=== PATIENT | female | born 2000 | race Caucasian/White ===

== ENCOUNTER → 2025-08-12 | Outpatient (CLI) | payer BC, SELFPAY ==
[2025-08-12 12:19] LABS: Hematocrit 36.8 % (37-47); Hemoglobin 12.9 g/dL (12.0-15.0); Immature Granulocytes Count 0.040 X10^3/uL (0.0-0.0); Mean Corp Hgb Conc 35.1 g/dL (32-36); Mean Corpuscular Volume 85.6 fL (81-99); Mean Platelet Vol. 10.2 fl (6.2-12.0); NRBC Flagged by Analyzer 0 % (0-5); Platelet Count 277 K/mm3 (150-450); RBC Distribution Width CV 12.0 % (11.6-14.6); RBC Distribution Width SD 37.4 fl (35.1-43.9); Red Blood Count 4.30 M/mm3 (4.2-5.4); White Blood Count 7.9 K/mm3 (4.4-11.0)
--- OUTSIDE RECORDS SUMMARY | 2025-08-12 13:15 | XMS RPT_ITS | CCD ---
Author Organization [facility] Care Team Providers Care Livery Car Driver Name Role Phone Care Physician, No Primary Primary Care Unava ilable Shandra Hidalgo Attending Unavailable Care Physician, No Primary Referring Unava ilable Selina Tolbert Attending Unavailable Care Physician, No Primary Referring Unava ilable Care Physician, No Primary Primary Care Unava ilable Allergies Allergy Classification Reported Allergen(s) Allergy Type Date of Onset Reaction(s) Facility (1 source) Amoxicillin Drug Allergy 07-30-2025 [facility] Repository Problems Problem Classification Problem Date Documented Da te Episodic/Chronic Other and delivery including normal (1 source) Encounter for supervision of normal , unspecified, unspecified trimester; Translations: [Encounter for supervision of normal , unspecified, unspecified trimester] Onset: 07-30-2025 Episodic Other screening for suspected conditions (not mental disorders or infectious disease) (1 source) Encounter for screening for malignant neoplasm of cervix; Translations: [Encounter for screening for malignant neoplasm of cervix] Onset: 07-30-2025 Episodic Residual codes; unclassified (1 source) Family history of other specified conditions; Translations: [Family history of other specified conditions] Onset: 07-30-2025 Episodic Results Test Name Value Interpretation Reference Range Facil it Office Visit Reporton 2024 Office Visit Report [facility] [address] [place] [address] OFFICE VISIT Date of Service: 07/30/25 MR#: [id number] Acct: [id number] Patient: SHERITA ALCALA Rep #: [id number] : 2000 Provider: Dr. Selina burt MD Age/Sex: 25/F Location: [facility] Status: Signed Intake Vital Signs 07/30/25 13:44 Height 5 ft 2 in Weight: 135 lb BMI 24.7 BP 120/80 Intake Visit Reasons: PNOB Vitals Education Is patient in pain?: No Allergies amoxicillin Allergy (Mild, Verified 07/30/25 08:15) Hives Medications ???Medication ???Instructions ???Recorded ???Confirmed ???Type docosahexaenoic acid 200 mg mg PO 07/30/25 07/30/25 History capsule ( DHA) Is last menstrual period known: Yes Post menopausal: No Patient : Yes Nurse's Note: Pt here for secondary amenorrhea. Vitals WNL. PNOB questions completed. Problem list, allergies, and medications updated. First trimester ACOG education completed. Assessment and Plan Assessment and Plan (1) Family history of genetic disorder: Status: Acute Comment: Pt's mom has hereditary hemochromatosis - pt has never been tested (2) : Status: Acute Comment: Discussed genetic/carrier testing - undecided (3) Supervision of normal : Status: Acute Comment: , TALYA 03/10/26, : Boni Orders: Orders CBC W/Diff, Automated 08/12/25 Shandra Hidalgo CNM Z34.90 - Encounter for supervision of normal , unspecified, unspecified trimester Type Screen 08/12/25 Shandra Hidalgo CNM Z34.90 - Encounter for supervision of normal , unspecified, unspecified trimester Rubella IgG 08/12/25 Shandra Hidalgo CNM Z34.90 - Encounter for supervision of normal , unspecified, unspecified trimester Hepatitis C Antibody 08/12/25 Shandra Hidalgo CNM Z34.90 - Encounter for supervision of normal , unspecified, unspecified trimester Hepatitis B Surface Antigen 08/12/25 Shandra Hidalgo CNM Z34.90 - Encounter for supervision of normal , unspecified, unspecified trimester Culture, Urine 08/12/25 Shandra Hidalgo CNM Z34.90 - Encounter for supervision of normal , unspecified, unspecified trimester Syphilis Antibodies 08/12/25 Shandra Hidalgo CNM Z34.90 - Encounter for supervision of normal , unspecified, unspecified trimester Chlamydia/GC BELLA aptima 08/12/25 Shandra Hidalgo CNM Z34.90 - Encounter for supervision of normal , unspecified, unspecified trimester HIV 08/12/25 Shandra Hidalgo CNM Z34.90 - Encounter for supervision of normal , unspecified, unspecified trimester PAP I-G w/rfx hrHPV-Aptima 08/12/25 Shandra Hidalgo CNM Z12.4 - Encounter for screening for malignant neoplasm of cervix Referrals Hematology Oncology Dr. Rosamaria Jain DO Z84.89 - Family history of other specified conditions 08/03/25 1023 Date Selina Tolbert MD Cosigner Signature: Date (if applicable) CC: Normal [facility] Encounters Encounter Date Encounter Type Care Provider Facility Start: 08-12-2025 ambulatory No Primary Care Physici an Facility:[facility] Start: 07-30-2025 End: 07-30-2025 ambulatory Selina Tolbert Facility:[facility] Payers Date Payer Category Payer Self-pay 2025 Unknown [id number] Unknown [id number] Unknown [id number] Summary Purpose Family History No Family History Records Found Advance Directives No Advanced Directives Records Found Additional Source Comments INFORMATION SOURCE (unrecogn ized section and content) DATE CREATED AUTHOR 08/04/2025 [facility] FOR RECORDS PERTAINING TO PATIENTS WHO ARE OR HAVE BEEN ENROLLED IN A CHEMICAL DEPENDENCY/SUBSTANCEABUSE PROGRAM, SOME INFORMATION MAY BE OMITTED. This clinical summary was aggregated from multiple sources. Caution should be exercised in using it in the provision of clinical care. This summary normalizes information from multiple sources, and as a consequence, information in this document may materially change the coding, format and clinical context of patient data. In addition, data may be omitted in some cases. CLINICAL DECISIONS SHOULD BE BASED ON THE PRIMARY CLINICAL RECORDS. [employer] provides no warranty or guarantee of the accuracy or completeness of information in this document.
[2025-08-12 13:32] LABS: HIV Nonreactive (Nonreactive); Hepatitis B Surface Antigen Nonreactive (Nonreactive); Hepatitis C Antibody Nonreactive (Nonreactive); Syphilis Antibodies Nonreactive (Nonreactive)
[2025-08-16 05:07] LABS: Chlamydia By Nucleic Acid AMP Negative (Negative); Gonococcus By Nucleic Acid AMP Negative (Negative)
== END | disposition home or self-care (01) ==
PROVIDERS: Visit Provider Advanced Practice Midwife
DX: Z34.90 Encounter for supervision of normal pregnancy, unspecified, unspecified trimester (principal); Z12.4 Encounter for screening for malignant neoplasm of cervix
CPT/HCPCS: 36415; 85025; 86703; 86762; 86780; 86803; 86850; 86900; 86901; 87086; 87340; 87491; 87591; 88175; G0145